=== PATIENT | male | born 1985 | race Caucasian/White ===

== ENCOUNTER 2019-06-08 07:29 | Day surgery (SDC) | payer BC ==
[~2019-06-08 07:29] MED LIST: Sodium Chloride 0.9% 10 ML Syringe FLUSH PRN
[2019-06-08] MEDS ORDERED: Labetalol 100 MG/20 ML MDV IV ONE (07:30)
[2019-06-08] MEDS ORDERED: Lactated Ringers 1,000 ML IV ONE (07:30)
[2019-06-08] MEDS ORDERED: Glycopyrrolate 0.2 MG/ML 5 ML MDV IV ONE (07:30)
[2019-06-08] MEDS ORDERED: fentaNYL 100 MCG/2 ML SDV IV ONE (07:30)
[2019-06-08] MEDS ORDERED: Rocuronium 100 MG/10 ML MDV IV ONE (07:30)
[2019-06-08] MEDS ORDERED: Midazolam 1 MG/ML 2 ML SDV IV ONE (07:30)
[2019-06-08] MEDS ORDERED: Acetaminophen 1,000 MG/100 ML Infusion Bottle Premix IV ONE (07:30)
[2019-06-08] MEDS ORDERED: Propofol 200 MG/20 ML SDV IV ONE (07:30)
[2019-06-08] MEDS ORDERED: Lidocaine 2% 5 ML SDV INJECT ONE (07:30)
[2019-06-08] MEDS ORDERED: Neostigmine Methylsulfate 10 MG/10 ML MDV IVPUSH ONE (07:30)
[2019-06-08] MEDS ORDERED: Lactated Ringers 1,000 ML IV SCH (07:30)
[2019-06-08] MEDS ORDERED: Dexamethasone 4 MG/ML 5 ML MDV IVPUSH ONE (07:30)
[2019-06-08] MEDS ORDERED: Ondansetron 4 MG/2 ML SDV IVPUSH ONE (07:30)
[2019-06-08] MEDS ORDERED: Ketorolac 30 MG/ML SDV IVPUSH ONE (07:30)
--- NOTE | 2019-06-08 10:55 | PCM.HPR ---
H & P Addendum review - H & P Addendum Review Date of Original H & P: 06/07/19 Date Reviewed: 06/08/19 Time Reviewed: 09:00 Patient was Examined: No Changes
--- NOTE | 2019-06-08 10:55 | PCM.OPNOTE ---
- General Post-Op/Procedure Note Date of Surgery/Procedure: 06/08/19 Operative Procedure(s): Lap Danielle Findings: Cholecystitis and Cholelithiasis Pre Op Diagnosis: Above Post-Op Diagnosis: Same Anesthesia Technique: General ET Tube Primary Surgeon: Caesar Cantu EBMiguelito in mLs: 10 Complications: None Condition: Good
--- NOTE | 2019-06-08 12:05 | OR ---
DATE OF OPERATION: 06/08/2019 SURGEON: Caesar Cantu MD PREOPERATIVE DIAGNOSIS: Cholecystitis and cholelithiasis. POSTOPERATIVE DIAGNOSIS: Cholecystitis and cholelithiasis. PROCEDURE: Laparoscopic cholecystectomy. ANESTHESIA: General. DESCRIPTION OF PROCEDURE: The patient was brought to the operating room, where general endotracheal anesthesia was administered. The abdomen was clipped, prepped with ChloraPrep, and draped sterilely. An infraumbilical incision was made and extended into the peritoneal cavity without difficulty. The López cannulator was introduced and pneumoperitoneum obtained. Remaining three 5 mm ports were placed in the usual positions. The patient was placed in reverse Trendelenburg position and rotated to his left. The gallbladder was edematous and grasped and retracted cephalad. The cystic artery and cystic duct were dissected free with minimal difficulty. There was a fair amount of edema and some fibrosis present. Once these structures were clearly identified, they were each doubly clipped proximally and once distally. They were then transected. Gallbladder was removed from the bed of the liver with minimal difficulty. Minimal oozing was controlled with cautery. There was a posterior branch of the cystic artery that was clipped proximally and cauterized distally. Once the gallbladder was completely freed up, it was brought out through the umbilical incision. The right upper quadrant was thoroughly inspected and irrigated and hemostasis assured. Ports were removed under direct vision. Umbilical fascia was closed with [id number] 0 Vicryl. Skin was closed with 4-0 Vicryl subcuticular sutures. Benzoin and Steri-Strips were placed and Band-Aids applied. The patient tolerated the procedure well. Estimated blood loss was 10 mL. He returned to Postanesthesia in stable condition. /[id number] NIELS/MICHELE
== END 2019-06-08 12:21 | disposition home or self-care (01) ==
LOC: FB.SDS 07:29
PROVIDERS: ATTEND Surgery
DX: K80.00 Calculus of gallbladder with acute cholecystitis without obstruction (principal); K21.9 Gastro-esophageal reflux disease without esophagitis; E78.5 Hyperlipidemia, unspecified; Z79.899 Other long term (current) drug therapy
CPT/HCPCS: 88304; J0131; J1100; J1885; J2001; J2250; J2405; J2704; J2710; J3010; J3490; J7120